=== PATIENT | male | born 1985 | race African-American/Black ===

== ENCOUNTER 2017-09-03 07:04 | Emergency (ER) | payer SELFPAY ==
[~2017-09-03] VITALS: Ht 190.5 cm; Wt 99.8 kg
[2017-09-03 07:10] VITALS: BP 145/89
[2017-09-03] MEDS ORDERED: DEXAMETHASONE SOD PHOSPHATE 10 MG/ML VIAL ONE (07:27)
[2017-09-03] MEDS ORDERED: DEXAMETHASONE SOD PHOSPHATE 4 MG/ML VIAL IM ONE (07:30)
== END 2017-09-03 07:39 | disposition home or self-care (01) ==
LOC: ER 07:06
DX: K12.2 Cellulitis and abscess of mouth (principal)
CPT/HCPCS: 96372; 99283; A4606; J1100; Z7610

== ENCOUNTER 2018-03-28 16:53 | Emergency (ER) | payer MEDICAID, OTHER ==
[~2018-03-28] VITALS: Ht 190.5 cm; Wt 99.8 kg
[2018-03-28 17:00] VITALS: BP 119/72
== END 2018-03-28 17:25 | disposition home or self-care (01) ==
LOC: ER 16:54
DX: J20.9 Acute bronchitis, unspecified (principal); F17.200 Nicotine dependence, unspecified, uncomplicated
CPT/HCPCS: A4606; Z7610